=== PATIENT | female | born 1965 | race Caucasian/White ===

== ENCOUNTER → 2019-02-14 15:26 | Outpatient (CLI) | payer BC, SELFPAY ==
--- NOTE | 2019-02-14 15:27 | DI.MG.S_ITS ---
BILATERAL DIGITAL SCREENING MAMMOGRAM 3D/2D WITH CAD: 02/14/2019 CLINICAL: Routine screening. Comparison is made to exams dated: 03/29/2017 mammogram, 08/26/2011 mammogram, and 08/25/2010 mammogram - [facility]. There are scattered fibroglandular elements in both breasts. Current study was also evaluated with a Computer Aided Detection (CAD) system. No significant masses, calcifications, or other findings are seen in either breast. There has been no significant interval change. IMPRESSION: NEGATIVE There is no mammographic evidence of malignancy. A 1 year screening mammogram is recommended. This exam was interpreted at Station ID: [id number]. NOTE: For mammograms, a report in lay terms will be sent to the patient. Approximately 15% of breast malignancies will not be visualized mammographically. In the management of a palpable breast mass, a negative mammogram must not discourage biopsy of a clinically suspicious lesion. Electronically Signed By: Chapo piper/pool:02/15/2019 06:34:16 letter sent: Normal Exam ACR BI-RADS Category 1: Negative 3341F
== END ==
PROVIDERS: PCP Nurse Practitioner Family; Visit Provider Nurse Practitioner Family
DX: Z12.31 Encounter for screening mammogram for malignant neoplasm of breast (principal)
CPT/HCPCS: 77063; 77067

== ENCOUNTER 2019-05-17 12:46 | Day surgery (SDC) | payer BC, SELFPAY ==
[2019-05-17] VITALS (7 sets, daily range): BP systolic 97–130; BP diastolic 64–80; PULSE 66–73; RESP 11–16; TEMP 36.3–36.9; O2SAT 91–95; BMI 29.0
--- NOTE | 2019-05-17 | PATH_ITS ---
[facility] Accession Number: [id number] . 01 Material submitted: . colon - POLYP AT 20CM-DISTAL SIGMOID COLON . 01 Clinical history: . ENCOUNTER FOR SCREENING FOR MALIGNANT NEOPLASM OF . 02 Diagnosis: Distal Sigmoid Colon, Polyp at 20 cm, Biopsy: Hyperplastic polyp with features of mucosal prolapse. MRV 05/20/2019 1008 Local . 02 Electronically signed: . Torri Yoo MD, Pathologist NPI- [id number] . 01 Gross description: . Received in formalin, labeled polyp @ 20 cm distal sigmoid colon, is a fragment of gonzalez-thomas tissue (0.3 x 0.3 x 0.2 cm). Entirely submitted in cassette A1. ([id number]) /MRV 05/19/2019 1934 Local . 02 Pathologist provided ICD-10: K63.5 . 02 CPT . 931267 Performed at: 01 [facility] [address] [facility], [place], [place] [id number] MD Bryon Rao MD Phone: [phone] Performed at: 02 [facility] [address] [place], [place] [id number] MD Torri Yoo MD Phone: [phone]
[2019-05-17] MEDS: SODIUM CHLORIDE 0.9% 1,000 ML 200 ML IV (13:35)
--- NOTE | 2019-05-17 14:42 | PM.HP.1 ---
History of Present Illness History of Present Illness Date Patient Seen: 05/17/19 Time Patient Seen: 14:43 Chief complaint: [id number] Narrative: 54-year-old female presents for screening colonoscopy, last 10 years ago done to evaluate for IBD -no evidence of IBD on scope She is feeling well, no intestinal complaints No family history or personal history of colon polyps or colorectal cancers. No difficulty with prep Patient History Surgical History (Updated 01/02/18 @ 06:15 by Conversion Provider) Status post endometrial ablation Family History (Updated 03/30/15 @ 00:00 by Conversion Provider) Grandfather Heart disease Mother Age: 73 Asthma Sister Age: 50 Melanoma Social History household members: spouse Smoking Status: Never smoker second hand exposure: No alcohol intake: current (1 glass of wine daily) substance use type: does not use Family & Social History Family History (Updated 03/30/15 @ 00:00 by Conversion Provider) Grandfather Heart disease Mother Age: 73 Asthma Sister Age: 50 Melanoma Social History: household members spouse Tobacco & Substance use: Smoking Status Never smoker alcohol intake current Meds Home Medications and Allergies Home Medications Medication Instructions Recorded Confirmed Type albuterol sulfate [Ventolin HFA] 2 puff INH Q4HP #2 inh 03/08/17 05/17/19 Rx fluticasone propion-salmeterol 1 puff INH BID #60 dose 09/12/17 05/17/19 Rx [Advair Diskus] escitalopram oxalate 20 mg tablet 20 mg PO QDAY #90 tab 01/22/19 05/17/19 Rx cholecalciferol (vitamin D3) 2,000 2,000 unit PO DAILY #90 cap 05/14/19 05/17/19 Rx unit capsule ergocalciferol (vitamin D2) 50,000 50,000 unit PO QWEEK #4 cap 05/14/19 05/17/19 Rx unit capsule fluticasone propionate [Flonase 1 spray INTRANASAL BID 05/17/19 05/17/19 History Allergy Relief] Allergies Allergy/AdvReac Type Severity Reaction Status Date / Time No Known Drug Allergies Allergy Unverified 01/22/19 15:35 Review of Systems Constitutional Constitutional: Denies fever(s) Eyes Eyes: Denies bulging eyes ENT Ears, Nose, Mouth, and Throat: No lip swelling Cardiovascular Cardiovascular: Denies generalize swelling Respiratory Respiratory: Denies stridor Gastrointestinal Gastrointestinal: Denies coffee ground emesis Musculoskeletal Musculoskeletal: Denies loss of height Integumentary/Breasts Skin/Breast: Denies wounds Neurologic Neurologic: Denies abnormal speech and Denies confusion Psychiatric Psychiatric: Denies confusion and Denies tactile hallucinations Endocrine Endocrine: Denies deepening of the voice Hematologic/Lymphatic Hematologic/Lymphatic: Denies lymphadenopathy Allergic/Immunologic Allergic/Immunologic: Denies lip swelling Exam Vital Signs (past 8 hours): - 05/17/19 13:15 Temperature 97.3 F L Pulse Rate 70 Respiratory Rate 16 Blood Pressure 130/80 Pulse Oximetry 94 Oxygen Delivery Method Room Air Const General: cooperative and healthy appearing Orientation: alert HENMT Head: normal to inspection Nose: nares normal Mouth: oral mucosae normal and lip normal Eyes Eyelids: eyelids normal Conjunctivae: conjunctivae normal Sclera: sclerae normal Neck Neck: supple and other (No thyromegally) Chest Chest: other (LCTAB , regular respiratory effort) Cardio Rhythm: regular rhythm Heart Sounds: S1 normal, S2 normal, no gallops, no murmurs and no rubs GI Other: Abdomen soft nontender nondistended Skin General: no rashes or lesions noted Neuro General: alert and awake Psych Appearance: grossly normal Affect: normal affect Assessment & Plan Assessment & Plan narrative: 54-year-old woman presents for screening colonoscopy, last 10 years ago Risks of procedure including bleeding, perforation, , hypoxia, missed lesion all discussed All questions answered Patient ready to proceed
[2019-05-17] MEDS: GLUCAGON,HUMAN RECOMBINANT 1 MG/ML VIAL IV (15:07)
--- NOTE | 2019-05-17 15:26 | PM.OP.ENDO ---
Operative Date/Time/Diagnoses Date of procedure: 05/17/19 Time of procedure: 15:26 Pre-op diagnosis: Colorectal cancer screening Procedure & Clinicians Study performed: Screening colonoscopy-complete hot snare polypectomy distal sigmoid colon -small pedunculated polyp Same procedure as scheduled: Yes Indications: 54-year-old female without personal or family history of colon or rectal cancers, also no family or personal history of polyps. Presents 10 years after last colonoscopy Surgeon: London Woods Procedure Notes SCOAP/Timeout: Completed Procedure in detail: A 54-year-old female taken to the endoscopy suite, a time-out was completed. She was sedated over the entire course of the procedure with 10 mg of midazolam and 200 micro g of fentanyl. A digital rectal exam was performed without lesion. 160 cm colonoscope was advanced through the folds of the rectum and colon until the cecum was reached, there was a very tight hepatic flexure which required multiple maneuvers including placing patient alternately in the decubitus and supine position. Eventually this was able to be negotiated and the cecum was reached. The cecum was identified be a a obvious appendiceal orifice and a ileocecal valve. The colonoscope was then slowly withdrawn inspecting the mucosal surfaces. At the level of the sigmoid colon there is a moderate amount of diverticulosis without evidence of active inflammation, at the distal sigmoid colon/rectosigmoid junction a small pedunculated polyp was identified -this was snared with hot snare without incident sent for pathology. The remainder of the colon/rectum was without additional lesions including with retroflex of the scope in the distal rectum. Prep was adequate Scope withdrawal time: 15 Sedation minutes: 44 Specimen(s): other (Distal sigmoid colon polyp) Complications: none Impression: 1. Moderate sigmoid diverticulosis 2. Pedunculated distal sigmoid polyp status post removal Post-procedure Recommendations: Colonscopy in 5 years Plan for aftercare: PACU then home Follow up: as needed Disposition: PACU
[2019-05-17] MEDS: MIDAZOLAM 5 MG/5 ML VIAL IV (15:29)
[2019-05-17] MEDS: fentaNYL 250 MCG/5 ML INJ IV (15:29)
--- NOTE | 2019-05-17 16:19 | SUR.PHASEII ---
pt awake and alert states she is ready to go home. Zachary Duff walked pt out to her ride. Pt took fluids well and denies any complaints.
== END 2019-05-17 16:10 | disposition home or self-care (01) ==
PROVIDERS: PCP Nurse Practitioner Family; Visit Provider Surgery
PROC: 0DJD8ZZ Inspection of Lower Intestinal Tract, Via Natural or Artificial Opening Endoscopic (ICD-10-PCS; CPT 45378; principal; 2019-05-17 14:00)
DX: Z12.11 Encounter for screening for malignant neoplasm of colon (principal); K57.30 Diverticulosis of large intestine without perforation or abscess without bleeding; K63.5 Polyp of colon
CPT/HCPCS: 45385; 99152; 99153; J1610; J2250; J3010

== ENCOUNTER → 2020-04-17 13:32 | Outpatient (CLI) | payer BC, SELFPAY ==
--- NOTE | 2020-04-17 | DI.MG.S_ITS ---
BILATERAL DIGITAL SCREENING MAMMOGRAM 3D/2D WITH CAD: 04/17/2020 CLINICAL: Routine screening. Comparison is made to exams dated: 02/14/2019 mammogram, 03/29/2017 mammogram, 08/26/2011 mammogram, 08/25/2010 mammogram, and 02/12/2008 mammogram - [facility]. There are scattered fibroglandular elements in both breasts. Current study was also evaluated with a Computer Aided Detection (CAD) system. No significant masses, calcifications, or other findings are seen in either breast. There has been no significant interval change. IMPRESSION: NEGATIVE There is no mammographic evidence of malignancy. A 1 year screening mammogram is recommended. This exam was interpreted at Station ID: [id number]. NOTE: For mammograms, a report in lay terms will be sent to the patient. Approximately 15% of breast malignancies will not be visualized mammographically. In the management of a palpable breast mass, a negative mammogram must not discourage biopsy of a clinically suspicious lesion. Electronically Signed By: David bennett/pool:04/17/2020 17:24:45 letter sent: Normal Exam ACR BI-RADS Category 1: Negative 3341F
== END ==
PROVIDERS: PCP Nurse Practitioner Family; Referring Provider Nurse Practitioner Family; Visit Provider Nurse Practitioner Family
DX: Z12.31 Encounter for screening mammogram for malignant neoplasm of breast (principal)
CPT/HCPCS: 77063; 77067

== ENCOUNTER → 2020-10-14 08:17 | Outpatient (CLI) | payer OTHER, BC, SELFPAY ==
[2020-10-14 08:59] LABS: Hematocrit 38.6 % (36-46); Hemoglobin 12.8 g/dL (12.0-16.0); Mean Corpuscular HGB Conc 33.1 % (30-36); Mean Corpuscular Hemoglobin 30.9 PG (26-34); Mean Corpuscular Volume 93.2 fL (80-100); Platelet Count 238 X10^3/uL (150-400); Red Blood Cell Count 4.15 X10^6/uL (4.0-5.2); Red Cell Distribution Width 12.3 % (11.6-14.8); White Blood Cell Count 5.9 X10^3/uL (4.5-11.0)
[2020-10-14 09:08] LABS: Alanine Aminotransferase 15 IU/L (<35); Albumin 4.2 g/dL (3.5-5.0); Albumin Globulin Ratio 1.4 (1.0-2.8); Alkaline Phosphatase 55 U/L (38-126); Aspartate Aminotransferase 18 IU/L (14-36); BUN Creatinine Ratio 23.2 (6-22); Bilirubin Total 0.4 mg/dL (0.2-1.3); Blood Urea Nitrogen 16 mg/dL (7-17); Carbon Dioxide 31 mmol/L (22-32); Chloride 105 mmol/L (98-107); Cholesterol 218 mg/dL (140-199); Estimated Glomerular Filt Rate > 60.0 mL/min (>60); Globulin 3.1 g/dL (1.7-4.1); Glucose 106 mg/dL (70-100); HDL Cholesterol 60 mg/dL (40-60); HEMOLYSIS < 15 (0-50); LDL Cholesterol Calculated 137 mg/dL (<100); Potassium 4.5 mmol/L (3.4-5.1); Sodium 137 mmol/L (137-145); Total Protein 7.3 g/dL (6.3-8.2); Triglycerides 107 mg/dL (35-150)
[2020-10-14 12:45] LABS: Hemoglobin A1C% w Est Avg Glu 5.2 % (4.0-6.0)
== END ==
PROVIDERS: PCP Nurse Practitioner Family; Referring Provider Nurse Practitioner Family; Visit Provider Nurse Practitioner Family
DX: Z00.00 Encounter for general adult medical examination without abnormal findings (principal); J45.909 Unspecified asthma, uncomplicated; Z13.6 Encounter for screening for cardiovascular disorders; R73.9 Hyperglycemia, unspecified
CPT/HCPCS: 36415; 80053; 80061; 83036; 85027

== ENCOUNTER → 2020-11-04 16:47 | Outpatient (CLI) | payer OTHER, BC, SELFPAY ==
[2020-11-04 18:10] LABS: Vitamin D 25 Hydroxy (D3) 19.1 ng/mL (30.0-100.0)
== END ==
PROVIDERS: PCP Nurse Practitioner Family; Referring Provider Nurse Practitioner Family; Visit Provider Nurse Practitioner Family
DX: E55.9 Vitamin D deficiency, unspecified (principal)
CPT/HCPCS: 36415; 82306

== ENCOUNTER → 2020-11-12 16:49 | Outpatient (CLI) | payer OTHER, BC, SELFPAY ==
[2020-11-19 20:15] LABS: Estrogen 345 pg/mL (.)
== END ==
PROVIDERS: PCP Nurse Practitioner Family; Referring Provider Nurse Practitioner Family; Visit Provider Nurse Practitioner Family
DX: N89.8 Other specified noninflammatory disorders of vagina (principal); E78.2 Mixed hyperlipidemia; E55.9 Vitamin D deficiency, unspecified
CPT/HCPCS: 36415; 82672; 83001

== ENCOUNTER → 2021-06-05 08:04 | Outpatient (CLI) | payer OTHER, BC, SELFPAY ==
--- NOTE | 2021-06-05 08:05 | DI.MG.S_ITS ---
BILATERAL DIGITAL SCREENING MAMMOGRAM 3D/2D WITH CAD: 06/05/2021 CLINICAL: Routine screening. Comparison is made to exams dated: 04/17/2020 mammogram, 02/14/2019 mammogram, and 03/29/2017 mammogram - [facility]. There are scattered fibroglandular elements in both breasts. Current study was also evaluated with a Computer Aided Detection (CAD) system. No significant masses, calcifications, or other findings are seen in either breast. There has been no significant interval change. IMPRESSION: NEGATIVE There is no mammographic evidence of malignancy. A 1 year screening mammogram is recommended. This exam was interpreted at Station ID: [id number]. NOTE: For mammograms, a report in lay terms will be sent to the patient. Approximately 15% of breast malignancies will not be visualized mammographically. In the management of a palpable breast mass, a negative mammogram must not discourage biopsy of a clinically suspicious lesion. Electronically Signed By: Chapo Puckett M.D. at/pool:06/07/2021 07:38:48 letter sent: Normal Exam ACR BI-RADS Category 1: Negative 3341F
== END ==
PROVIDERS: PCP Nurse Practitioner Family; Referring Provider Nurse Practitioner Family; Visit Provider Nurse Practitioner Family
DX: Z12.31 Encounter for screening mammogram for malignant neoplasm of breast (principal)
CPT/HCPCS: 77063; 77067

== ENCOUNTER → 2023-02-07 08:09 | Outpatient (CLI) | payer OTHER, BC, SELFPAY ==
--- NOTE | 2023-02-07 | DI.MG.S_ITS ---
BILATERAL DIGITAL SCREENING MAMMOGRAM 3D/2D WITH CAD: 02/07/2023 CLINICAL: Routine screening. Comparison is made to exams dated: 06/05/2021 mammogram, 04/17/2020 mammogram, and 02/14/2019 mammogram - [facility]. There are scattered areas of fibroglandular density in both breasts (category b / 25%-50% glandular tissue). Current study was also evaluated with a Computer Aided Detection (CAD) system. No significant masses, calcifications, or other findings are seen in either breast. There has been no significant interval change. IMPRESSION: NEGATIVE There is no mammographic evidence of malignancy. A 1 year screening mammogram is recommended. Based on the Tyrer Cuzick model (a risk assessment model) the patient's lifetime risk is 8.3% and her 10 year risk is 2.7%. According to the ACR, ACS, and NCCN guidelines, an annual breast MRI exam along with mammogram is recommended if the patient's lifetime risk is 20% or greater. This exam was interpreted at Station ID: [id number]. NOTE: For mammograms, a report in lay terms will be sent to the patient. Approximately 15% of breast malignancies will not be visualized mammographically. In the management of a palpable breast mass, a negative mammogram must not discourage biopsy of a clinically suspicious lesion. Electronically Signed By: Daniel hicks/pool:02/07/2023 09:35:22 letter sent: Normal Exam ACR BI-RADS Category 1: Negative 3341F
== END ==
PROVIDERS: PCP Registered Nurse; Referring Provider Registered Nurse; Visit Provider Registered Nurse
DX: Z12.31 Encounter for screening mammogram for malignant neoplasm of breast (principal)
CPT/HCPCS: 77063; 77067

== ENCOUNTER → 2024-10-23 16:25 | Outpatient (CLI) | payer OTHER, BC, SELFPAY ==
--- NOTE | 2024-10-23 16:27 | DI.MG.S_ITS ---
BILATERAL DIGITAL SCREENING MAMMOGRAM 3D/2D WITH CAD: 10/23/2024 CLINICAL: Routine screening. Comparison is made to exams dated: 02/07/2023 mammogram, 06/05/2021 mammogram, and 04/17/[address] [facility]. The breasts are almost entirely fatty (category a/<25% glandular tissue). Current study was also evaluated with a Computer Aided Detection (CAD) system. No significant masses, calcifications, or other findings are seen in either breast. There has been no significant interval change. IMPRESSION: NEGATIVE There is no mammographic evidence of malignancy. A 1 year screening mammogram is recommended. Based on the Tyrer Cuzick model (a risk assessment model) the patient's lifetime risk is 5.5% and her 10 year risk is 2.0%. According to the ACR, ACS, and NCCN guidelines, an annual breast MRI exam along with mammogram is recommended if the patient's lifetime risk is 20% or greater. This exam was interpreted at Station ID: [id number]. NOTE: For mammograms, a report in lay terms will be sent to the patient. Approximately 15% of breast malignancies will not be visualized mammographically. In the management of a palpable breast mass, a negative mammogram must not discourage biopsy of a clinically suspicious lesion. Electronically Signed By: Kylie azul/pool:10/24/2024 17:12:14 letter sent: Normal Exam ACR BI-RADS Category 1: Negative
== END ==
PROVIDERS: PCP Registered Nurse; Referring Provider Registered Nurse; Visit Provider Registered Nurse
DX: Z12.31 Encounter for screening mammogram for malignant neoplasm of breast (principal); R92.313 Mammographic fatty tissue density, bilateral breasts
CPT/HCPCS: 77063; 77067

== ENCOUNTER 2025-04-02 10:04 | Day surgery (SDC) | payer OTHER, BC, SELFPAY ==
[2025-04-02 11:12] VITALS: BP 150/87; PULSE 77; RESP 16; TEMP 36.1; O2SAT 100
[2025-04-02] MEDS: LACTATED RINGERS 1,000 ML 42 ML IV (11:13)
--- NOTE | 2025-04-02 11:14 | PM.HP.IH.1 ---
History of Present Illness History of Present Illness Date Patient Seen: 04/02/25 Chief complaint: Colonoscopy Narrative: Return for colonoscopy at a 5 year interval. Possible history of polyps the patient does not recall. [facility] Medical History (Updated 11/12/20 @ 16:39 by FIDE Jerome) Stress incontinence (2019) Dyspareunia Moderate intermittent asthma Vitamin D deficiency (2019) Mixed hyperlipidemia Surgical History (Updated 01/02/18 @ 06:15 by Conversion Provider) Status post endometrial ablation Family History (Updated 03/30/15 @ 00:00 by Conversion Provider) Grandfather Heart disease Mother Age: 79 Asthma Sister Age: 56 Melanoma Social History household members: spouse Smoking Status: Never smoker second hand exposure: No alcohol intake: current substance use type: does not use Meds Home Medications and Allergies Home Medications ?Medication ?Instructions ?Recorded ?Confirmed ?Type cholecalciferol (vitamin D3) 50 2,000 unit PO DAILY #90 caps 05/14/19 04/02/25 Rx mcg (2,000 unit) capsule albuterol sulfate 90 mcg/actuation 2 puff inhalation Q4HP #3 11/29/19 04/02/25 Rx aerosol inhaler (Ventolin HFA) inhalations ergocalciferol (vitamin D2) 1,250 1,250 mcg PO QWEEK #4 caps 11/05/20 04/02/25 Rx mcg (50,000 unit) capsule (Vitamin D2) sodium,potassium,mag sulfates 17.5 See Rx Instructions PO .COMPLEX 02/25/25 04/02/25 Rx gram-3.13 gram-1.6 gram oral soln #354 mL (Suprep Bowel Prep Kit) estradiol 0.05 mg/24 hr weekly 1 patch transdermal 04/02/25 History transdermal patch losartan 25 mg tablet 25 mg PO DAILY 04/02/25 04/02/25 History progesterone micronized 100 mg 100 mg PO ONCE PM 04/02/25 04/02/25 History capsule Allergies Allergy/AdvReac Type Severity Reaction Status Date / Time No Known Drug Allergies Allergy Verified 04/02/25 11:03 Exam Vital Signs (past 8 hours): - 04/02/25 11:12 Temperature 97.0 F L Pulse Rate 77 Respiratory Rate 16 Blood Pressure 150/87 H Pulse Oximetry 100 Oxygen Delivery Method Room Air Oxygen Delivery Method Room Air Assessment & Plan Assessment & Plan narrative: Need for follow-up colorectal cancer screening. Risks, benefits, alternatives have been explained. Time-Based Coding :: [TOTAL MINUTES] spent with patient and on the chart (including review of chart, obtaining history, exam, reviewing outside data, placing orders, documenting exam and treatment plan, and counseling patient) on [DATE]. [employer] Nurse Document charge(s): No
--- NOTE | 2025-04-02 11:16 | PM.OP.COLON ---
Operative Date/Time/Diagnoses Date of procedure: 04/02/25 Time of procedure: 12:17 Pre-op diagnosis: See indication and findings Post-op diagnosis: same Procedure & Clinicians Study performed: Colonoscopy Same procedure(s) as scheduled: Yes Surgeon: Cora Lund Anesthesia Type: Other Procedure Notes Procedure in detail: After informed consent was obtained the patient was placed in left lateral decubitus position. The video colonoscope was introduced to the rectum slowly passed the cecum. Preparation was good. On slow withdrawal mucosa was carefully examined. The scope was removed. The patient tolerated procedure well. Blood loss none Complications none Sedation mac Findings 1. Scattered sigmoid diverticulosis 2. Otherwise negative colonoscopy to cecum It has not clear whether or not she has a history of polyps. If records of the procedure and pathology can be retrieved from previous procedure and it shows adenomatous polyps follow-up should be in 5 years. Otherwise I would yearly follow-up 10 years
[2025-04-02 12:20] VITALS: BP 104/61; PULSE 81; RESP 20; TEMP 36.9; O2SAT 99
[2025-04-02 12:37] VITALS: BP 120/76; PULSE 70; RESP 15; TEMP 36.6; O2SAT 99
== END 2025-04-02 12:48 | disposition home or self-care (01) ==
PROVIDERS: PCP Registered Nurse; Referring Provider Internal Medicine Gastroenterology; Visit Provider Internal Medicine Gastroenterology
PROC: 0DJD8ZZ Inspection of Lower Intestinal Tract, Via Natural or Artificial Opening Endoscopic (ICD-10-PCS; CPT 45378; principal; 2025-04-02 11:30)
DX: Z12.11 Encounter for screening for malignant neoplasm of colon (principal); K57.30 Diverticulosis of large intestine without perforation or abscess without bleeding; J45.20 Mild intermittent asthma, uncomplicated; I10 Essential (primary) hypertension; E78.2 Mixed hyperlipidemia
CPT/HCPCS: G0121; J2405; J2704